=== PATIENT | male | born 1960 | race Caucasian/White ===

== ENCOUNTER 2018-10-16 05:18 | Day surgery (SDC) | payer BC ==
[~2018-10-16] VITALS: Ht 195.6 cm; Wt 128.8 kg
--- NOTE | ~2018-10-16 | O ---
[facility] [place] [address] OPERATIVE REPORT Name: CIERRA WILKINSON Martina Room #: 150-5 [facility]#: [id number] Admission: 10/16/18 ������������������ Attend Phys: Poli Gunn MD Discharge: ������������������ Date of : 58 Report #: [id number] THIS REPORT FOR: //name// CC: MCKAY Weems DATE OF SERVICE: 10/16/2018 PREOPERATIVE DIAGNOSIS: Bilateral upper lid ptosis with superior visual field defects both eyes. POSTOPERATIVE DIAGNOSIS: Bilateral upper lid ptosis with superior visual field defects both eyes. OPERATION PERFORMED: Bilateral upper lid functional ptosis repair. PACKING FLOOR WORKER: None. ANESTHESIA: Local with IV sedation. COMPLICATIONS: None. INDICATIONS FOR PROCEDURE: This patient has bilateral upper lid ptosis with superior visual field loss both eyes. Visual field testing demonstrates dense superior visual defects. Retesting with the upper lid elevated shows an improvement in visual field loss of over 30% and in excess of 12 degrees. The current procedure is being undertaken in order to improve the patient's visual function. Informed consent was obtained to include but not limited to the risk of loss of vision, bleeding, infection, scarring, failure to improve the problem and need for further surgery, such as adjustment of lid height. DESCRIPTION OF PROCEDURE: The patient was taken to the operating room, where 2% Xylocaine with epinephrine mixed with equal parts of 0.75% Marcaine with Wydase was administered transcutaneously to each upper lid. The patient was then prepped and draped in the usual sterile fashion. An upper lid crease incision was then made bilaterally and the dissection was carried down until the orbital septum was identified. The orbital septum was then cleared and the preaponeurotic fat identified. The levator aponeurosis was then disinserted from the anterior surface of the tarsal plate and dissected free in the avascular Mena's muscle plane. The aponeurosis was then advanced and reattached to the anterior surface of the tarsal plate with interrupted mattress 6-0 Novafil sutures on each side, adjusting for height and contour. [address] [address] OPERATIVE REPORT Name: CIERRA WILKINSON Room #: 150-5 [facility]..#: [id number] Admission: 10/16/18 ������������������ Attend Phys: Poli Gunn MD Discharge: ������������������ Date of : 58 Report #: [id number] The redundant aponeurosis was then amputated. The incision was then closed with multiple interrupted 6-0 chromic sutures that were used to recreate an upper lid crease. The skin was closed with a running 6-0 plain gut suture. The wound was then cleaned and dressed with ophthalmic antibiotic ointment followed by a Telfa pad. The patient was transported to the recovery area, having tolerated the procedure well with no anesthesia or operative complications being noted. ��������������������������������������������� ���������������������������������������� By: ��������������������������������������������� [id number] Poli Gunn MD /nt
[~2018-10-16 05:18] MED LIST: AMLODIPINE BESY10 MG PO; DEXTROAMP-AMPHE20 MG PO; DOXYCYCLINE 10100 MG PO; FEMARA2.5 MG PO; LIPITOR 20 MG T20 M1 PO; LISINOPRIL10 MG PO; TRAZODONE HCL100 MG PO; VENLAFAXINE HC150 M1 PO; WELLBUTRIN XL300 MG PO; XALATAN2.5 ML OPHTHALMIC
[2018-10-16 08:15] VITALS: BP 121/75
== END 2018-10-16 09:35 | disposition home or self-care (01) ==
LOC: OR 05:18 → TBA 05:18 → OR 09:35
DX: H02.413 Mechanical ptosis of bilateral eyelids (principal); H53.462 Homonymous bilateral field defects, left side; H53.461 Homonymous bilateral field defects, right side; I10 Essential (primary) hypertension; G47.33 Obstructive sleep apnea (adult) (pediatric); F41.9 Anxiety disorder, unspecified; E78.00 Pure hypercholesterolemia, unspecified; Z96.653 Presence of artificial knee joint, bilateral; Z98.890 Other specified postprocedural states; Z79.899 Other long term (current) drug therapy; Z88.8 Allergy status to other drugs, medicaments and biological substances
CPT/HCPCS: 50010; 50101; 50386; 50398; 51636; 56528; 56531; 62110; 62850; 70005

== ENCOUNTER 2019-10-22 06:28 | Day surgery (SDC) | payer BC ==
[~2019-10-22] VITALS: Ht 195.6 cm; Wt 132.9 kg
--- NOTE | ~2019-10-22 | O ---
[facility] [place] [address] OPERATIVE REPORT Name: CIERRA WILKINSON Room #: 150-5 [facility]..#: [id number] Admission: 10/22/19 Attend Phys: Poli Gunn MD Discharge: Date of : 58 Report #: [id number] THIS REPORT FOR: cc: Rosalee Leos MD,Rosalee Gunn,Poli Mascorro MD ~ CC: Rosalee Leos DO Poli Gunn DATE OF SERVICE: 10/22/2019 SURGEON: Poli Gunn MD RETURN TO SERVICE INSPECTOR: None. PREOPERATIVE DIAGNOSIS: Bilateral upper lid dermatochalasia with superior visual field defect. POSTOPERATIVE DIAGNOSIS: Bilateral upper lid dermatochalasia with superior visual field defect. OPERATION PERFORMED: Bilateral upper lid functional blepharoplasty. ANESTHESIA: Local with IV sedation. COMPLICATIONS: None. INDICATIONS FOR SURGERY: This patient has acquired upper lid dermatochalasia with superior visual field loss both eyes because of excessive upper lid tissues to include skin and fat. Visual field testing demonstrates dense superior visual defects. Retesting with the upper lid elevated shows an improvement in visual field loss of over 30% and in excess of 12 degrees. The current procedures are undertaken in order to improve the patient's visual function. Informed consent was obtained to include but not limited to the loss of vision, bleeding, infection, scarring, failure to improve the problem and need for further surgery. DESCRIPTION OF OPERATION: The patient was taken to the operating room, where 2% Xylocaine with epinephrine mixed with equal parts of 0.75% Marcaine with Wydase was administered transcutaneously to each upper lid. The patient was then prepped and draped in the usual sterile fashion and a skin-marking pen was then utilized to outline an upper lid crease that was symmetrical on each side. Graefe forceps were then used to quantitate the redundant upper lid skin and it was similarly outlined. The incisions were then made with Seda scissors and [facility] [address] [place] [address] OPERATIVE REPORT Name: CIERRA WILKINSON Room #: 150-5 [facility]#: [id number] Admission: 10/22/19 Attend Phys: Poli Gunn MD Discharge: Date of : 58 Report #: [id number] a skin-muscle flap removed from each side with high-temp cautery. Hemostasis was achieved with the monopolar cautery as it was throughout the case. The orbital septum was then identified and the central and medial fat pads were inspected. The redundant soft tissue was then sculpted with the monopolar cautery. The upper lid crease was then reformed with tightening of the pretarsal orbicularis muscle. The upper lid crease was then further reformed with multiple interrupted 6-0 chromic sutures. The skin was then closed with a running 6-0 plain gut suture. The wound was then cleaned and dressed with ophthalmic antibiotic ointment and a nonstick dressing. The patient was transported to the recovery area, where cold compresses were applied, having tolerated the procedure well with no anesthetic or operative complications being noted. By: [id number] Poli Gunn MD /nt
[~2019-10-22 06:28] MED LIST changes: +VIAGRA100 MG PO
[2019-10-22 07:24] VITALS: BP 137/76
== END 2019-10-22 08:35 | disposition home or self-care (01) ==
LOC: OR 06:28 → TBA 06:28 → OR 06:52
DX: H02.834 Dermatochalasis of left upper eyelid (principal); H02.831 Dermatochalasis of right upper eyelid; H53.462 Homonymous bilateral field defects, left side; H53.461 Homonymous bilateral field defects, right side; I10 Essential (primary) hypertension; E78.00 Pure hypercholesterolemia, unspecified; F41.9 Anxiety disorder, unspecified; G47.30 Sleep apnea, unspecified; Z98.890 Other specified postprocedural states; Z79.899 Other long term (current) drug therapy; Z88.8 Allergy status to other drugs, medicaments and biological substances; Z96.653 Presence of artificial knee joint, bilateral
CPT/HCPCS: 50010; 50101; 50386; 50398; 51636; 56531; 62110; 62850; 70005